=== PATIENT | female | born 1985 | race Caucasian/White ===

== ENCOUNTER → 2021-06-08 | Outpatient (CLI) | payer OTHER ==
--- NOTE | 2021-06-08 09:57 | US ---
EXAMINATION TYPE: US pelvis complete transvag DATE OF EXAM: 06/08/2021 COMPARISON: NONE CLINICAL HISTORY: N92.6 Irregular menstruation unspecified. Irregular cycles x couple months, 3, para 2, miscarriage, history of 2 c-sections TECHNIQUE: . Transabdominal sonographic images of the pelvis were acquired. Transvaginal sonographi c images were medically necessary to better assess the following anatomy: endometrium Date of LMP: 1 to 2 weeks ago EXAM MEASUREMENTS: Uterus: 8.9 x 3.5 x 4.2 cm Endometrial Stripe: 0.4 cm Right Ovary: 3.3 x 2.2 x 2.5 cm Left Ovary: 2.6 x 1.8 x 2.2 cm 1. Uterus: anteverted 2. Endometrium: appears wnl 3. Right Ovary: wnl 4. Left Ovary: wnl. Multiple peripheral follicles are noted. 5. Bilateral Adnexa: wnl 6. Posterior cul-de-sac: wnl IMPRESSION: 1. Note is made of multiple peripheral follicles on the left ovary. Consider polycystic ovarian disea se. 2. Pelvic ultrasound is otherwise unremarkable.
== END | disposition home or self-care (01) ==
LOC: RADUSWWP 07:35
PROVIDERS: ATTEND Family Medicine
DX: N92.6 Irregular menstruation, unspecified (principal)
CPT/HCPCS: 76830; 76856

== ENCOUNTER 2021-12-24 17:03 | Emergency (ER) | payer OTHER ==
[2021-12-24 17:52] VITALS: BP 126/82; PULSE 79; RESP 16; TEMP 97.6
[2021-12-24 18:23] LABS: Appearance,Urine Cloudy (Clear); Color,Urine Yellow; PH, Urine 7.5 (5.0-8.0); Protein,Urine Negative (Negative); Specific Gravity,Urine 1.013 (1.001-1.035)
[2021-12-24 18:24] LABS: Bacteria,Urine Rare /hpf; Bilirubin,Urine Negative (Negative); Blood,Urine Negative (Negative); Glucose,Urine (UA) Negative (Negative); Ketones,Urine Negative (Negative); Leukocyte Esterase,Urine Negative (Negative); Nitrite,Urine Negative (Negative); Squamous Epithelial Cell,Urine 7 /hpf (0-4); Urobilinogen,Urine <2.0 mg/dL (<2.0); WBC,Urine <1 /hpf (0-5)
[2021-12-24 23:28] LABS: Basophils % (A) 0 %; Eosinophils # (A) 0.4 k/uL (0-0.7); Eosinophils % (A) 4 %; HCT 42.5 % (34.0-46.0); HGB 14.2 gm/dL (11.4-16.0); Lymphocytes % (A) 37 %; MCH 33.3 pg (25.0-35.0); MCHC 33.4 g/dL (31.0-37.0); MCV 99.7 fL (80.0-100.0); Mean Platelet Volume 7.4; Monocytes # (A) 0.4 k/uL (0-1.0); Monocytes % (A) 5 %; Neutrophils # (A) 4.1 k/uL (1.3-7.7); Neutrophils % (A) 51 %; Platelet Count 376 k/uL (150-450); RBC 4.26 m/uL (3.80-5.40); RDW 12.7 % (11.5-15.5); WBC 8.1 k/uL (3.8-10.6)
[2021-12-24 23:38] LABS: ALT 20 U/L (4-34); AST 36 U/L (14-36); African American GFR (CKD) >90 (>60 ml/min/1.73 sqM); Albumin 4.4 g/dL (3.5-5.0); Alkaline Phosphatase 117 U/L (38-126); Anion Gap 8 mmol/L; Blood Urea Nitrogen 13 mg/dL (7-17); Calcium 9.1 mg/dL (8.4-10.2); Carbon Dioxide 26 mmol/L (22-30); Chloride 105 mmol/L (98-107); Glucose 86 mg/dL (74-99); Lipase 115 U/L (23-300); Non-African American GFR(CKD) >90 (>60 ml/min/1.73 sqM); Potassium 3.8 mmol/L (3.5-5.1); Sodium 139 mmol/L (137-145); Total Bilirubin 0.5 mg/dL (0.2-1.3); Total Protein 7.5 g/dL (6.3-8.2)
--- NOTE | 2021-12-24 23:55 | US ---
EXAMINATION TYPE: US abdomen limited DATE OF EXAM: 12/24/2021 COMPARISON: NONE CLINICAL HISTORY: ruq. Pain EXAM MEASUREMENTS: Liver Length: 13.9 cm Gallbladder Wall: 0.2 cm CBD: 0.3 cm Right Kidney: 8.9 x 3.8 x 4.7 cm Pancreas: obscured by overlying midline bowel gas Liver: wnl Gallbladder: echogenic foci along posterior wall Evidence for sonographic Rubin's sign: no CBD: wnl Right Kidney: wnl IMPRESSION: There are some small gallstones. No dilated ducts. Gallbladder not dilated.
[2021-12-25] MEDS ORDERED: ONDANSETRON 4 MG ODT STARTER PACK 2 TAB BTL PO STA (00:16)
[2021-12-25] MEDS ORDERED: HYDROcodone/APAP 7.5-325MG 1 EACH TAB PO ONE (00:16)
--- NOTE | 2021-12-25 00:25 | ED ---
Abdominal Pain HPI - General Chief Complaint: Abdominal Pain Stated Complaint: upper abd & back pain Source: patient Mode of arrival: ambulatory Limitations: no limitations - History of Present Illness Initial Comments: DD 6-year-old female presents emergency department for epigastric pain that radiates around to her back. States it started earlier this morning. Described as a cramping sensation related to food intake. Denies fevers. Admits nausea without vomiting. No changes in her bowel or bladder habits. Admits to previous 2. Last menstrual cycle was 3 weeks ago. No abnormal vaginal bleeding or discharge. Admits to one previous attack like this back in August. She did have an EGD which was reported as normal. No other alleviating, precipitating or modifying factors - Related Data Home Medications Medication Instructions Recorded Confirmed Acetaminophen Tab [Tylenol] 1,000 mg PO Q6HR PRN 07/18/19 07/18/19 Naproxen Sodium [Aleve] 440 mg PO BID PRN 07/18/19 07/18/19 Vienva Control 1 tab PO DAILY 07/18/19 07/18/19 Previous Rx's Medication Instructions Recorded Butalb/APAP/Caff 50-325-40Mg 1 each PO Q4HR PRN #10 tab 07/19/19 [Fioricet 50-325-40] HYDROcodone/APAP 7.5-325MG [[place] 1 tab PO Q4HR PRN #18 tab 12/25/21 7.5-325] Ondansetron Odt [Zofran Odt] 4 mg PO Q8HR PRN #10 tab 12/25/21 Allergies Allergy/AdvReac Type Severity Reaction Status Date / Time amoxicillin [Amoxicillin] Allergy Rash/Hives Verified 12/24/21 17:52 loratadine [From Claritin] Allergy Rash/Hives Verified 12/24/21 17:52 Penicillins Allergy Rash/Hives Verified 12/24/21 17:52 Review of Systems ROS Statement: Those systems with pertinent positive or pertinent negative responses have been documented in the HPI. ROS Other: All systems not noted in ROS Statement are negative. Past Medical History Past Medical History: No Reported History Additional Past Medical History / Comment(s): migraines History of Any Multi-Drug Resistant Organisms: None Reported Past Surgical History: Section, Orthopedic Surgery Additional Past Surgical History / Comment(s): RIGHT ARM - TRAUMATIC Past Anesthesia/Blood Transfusion Reactions: No Reported Reaction Past Psychological History: Anxiety, Depression Smoking Status: Never smoker Past Alcohol Use History: Occasional Past Drug Use History: None Reported - Past Family History Mother Family Medical History: Thyroid Disorder Additional Family Medical History / Comment(s): lyme disease Father Family Medical History: Hyperlipidemia, Hypertension Brother(s) Family Medical History: Pneumonia Additional Family Medical History / Comment(s): leukemia Sister(s) Family Medical History: No Reported History Son(s) Family Medical History: No Reported History Daughter(s) Family Medical History: No Reported History General Exam Limitations: no limitations Course Vital Signs 12/24/21 17:50 Temperature 97.6 F Pulse Rate 79 Respiratory 16 Rate Blood Pressure 126/82 O2 Sat by Pulse 100 Oximetry Medical Decision Making - Medical Decision Making Upon arrival patient is placed into room 6. Thorough history and physical exam was performed. IV access established. No pain or nausea at this time. Laboratory studies are conducted. Ultrasound was performed which does demonstrate gallstones. Results discussed patient. She is to call on Sunday to make an appointment with the surgeon. Return for any new or worsening symptoms. She'll be provided with pain and nausea medications at home. Patient agreed to plan and was discharged in stable condition - Lab Data Result diagrams: 12/24/21 23:07 12/24/21 23:07 Lab Results 12/24/21 12/24/21 12/24/21 Range/Units 17:56 17:56 23:07 WBC 8.1 (3.8-10.6) k/uL RBC 4.26 (3.80-5.40) m/uL Hgb 14.2 (11.4-16.0) gm/dL Hct 42.5 (34.0-46.0) % MCV 99.7 (80.0-100.0) fL MCH 33.3 (25.0-35.0) pg MCHC 33.4 (31.0-37.0) g/dL RDW 12.7 (11.5-15.5) % Plt Count 376 (150-450) k/uL MPV 7.4 Neutrophils % 51 % Lymphocytes % 37 % Monocytes % 5 % Eosinophils % 4 % Basophils % 0 % Neutrophils # 4.1 (1.3-7.7) k/uL Lymphocytes # 3.0 (1.0-4.8) k/uL Monocytes # 0.4 (0-1.0) k/uL Eosinophils # 0.4 (0-0.7) k/uL Basophils # 0.0 (0-0.2) k/uL Sodium (137-145) mmol/L Potassium (3.5-5.1) mmol/L Chloride (98-107) mmol/L Carbon Dioxide (22-30) mmol/L Anion Gap mmol/L BUN (7-17) mg/dL Creatinine (0.52-1.04) mg/dL Est GFR (CKD-EPI)AfAm (>60 ml/min/1.73 sqM) Est GFR (CKD-EPI)NonAf (>60 ml/min/1.73 sqM) Glucose (74-99) mg/dL Calcium (8.4-10.2) mg/dL Total Bilirubin (0.2-1.3) mg/dL AST (14-36) U/L ALT (4-34) U/L Alkaline Phosphatase (38-126) U/L Troponin I (0.000-0.034) ng/mL Total Protein (6.3-8.2) g/dL Albumin (3.5-5.0) g/dL Lipase (23-300) U/L Urine Color Yellow Urine Appearance Cloudy H (Clear) Urine pH 7.5 (5.0-8.0) Ur Specific [place] 1.013 (1.001-1.035) Urine Protein Negative (Negative) Urine Glucose (UA) Negative (Negative) Urine Ketones Negative (Negative) Urine Blood Negative (Negative) Urine Nitrite Negative (Negative) Urine Bilirubin Negative (Negative) Urine Urobilinogen <2.0 (<2.0) mg/dL Ur Leukocyte Esterase Negative (Negative) Urine WBC <1 (0-5) /hpf Ur Squamous Epith Cells 7 H (0-4) /hpf Urine Bacteria Rare H (None) /hpf Urine HCG, Qual Not Detected (Not Detectd) 12/24/21 12/24/21 Range/Units 23:07 23:07 WBC (3.8-10.6) k/uL RBC (3.80-5.40) m/uL Hgb (11.4-16.0) gm/dL Hct (34.0-46.0) % MCV (80.0-100.0) fL MCH (25.0-35.0) pg MCHC (31.0-37.0) g/dL RDW (11.5-15.5) % Plt Count (150-450) k/uL MPV Neutrophils % % Lymphocytes % % Monocytes % % Eosinophils % % Basophils % % Neutrophils # (1.3-7.7) k/uL Lymphocytes # (1.0-4.8) k/uL Monocytes # (0-1.0) k/uL Eosinophils # (0-0.7) k/uL Basophils # (0-0.2) k/uL Sodium 139 (137-145) mmol/L Potassium 3.8 (3.5-5.1) mmol/L Chloride 105 (98-107) mmol/L Carbon Dioxide 26 (22-30) mmol/L Anion Gap 8 mmol/L BUN 13 (7-17) mg/dL Creatinine 0.71 (0.52-1.04) mg/dL Est GFR (CKD-EPI)AfAm >90 (>60 ml/min/1.73 sqM) Est GFR (CKD-EPI)NonAf >90 (>60 ml/min/1.73 sqM) Glucose 86 (74-99) mg/dL Calcium 9.1 (8.4-10.2) mg/dL Total Bilirubin 0.5 (0.2-1.3) mg/dL AST 36 (14-36) U/L ALT 20 (4-34) U/L Alkaline Phosphatase 117 (38-126) U/L Troponin I <0.012 (0.000-0.034) ng/mL Total Protein 7.5 (6.3-8.2) g/dL Albumin 4.4 (3.5-5.0) g/dL Lipase 115 (23-300) U/L Urine Color Urine Appearance (Clear) Urine pH (5.0-8.0) Ur Specific [place] (1.001-1.035) Urine Protein (Negative) Urine Glucose (UA) (Negative) Urine Ketones (Negative) Urine Blood (Negative) Urine Nitrite (Negative) Urine Bilirubin (Negative) Urine Urobilinogen (<2.0) mg/dL Ur Leukocyte Esterase (Negative) Urine WBC (0-5) /hpf Ur Squamous Epith Cells (0-4) /hpf Urine Bacteria (None) /hpf Urine HCG, Qual (Not Detectd) Disposition Clinical Impression: Epigastric pain, Gallstones Disposition: HOME SELF-CARE Condition: Stable Instructions (If sedation given, give patient instructions): Gallstones (ED), Low Fat Diet (ED) Additional Instructions: Please call the surgeon on Sunday for an appointment. Follow a strict diet. Take the nausea and pain medications as directed. Return for any new or worsening symptoms. Prescriptions: HYDROcodone/APAP 7.5-325MG [[place] 7.5-325] 1 tab PO Q4HR PRN #18 tab PRN Reason: Pain Ondansetron Odt [Zofran Odt] 4 mg PO Q8HR PRN #10 tab PRN Reason: Nausea Is patient prescribed a controlled substance at d/c from ED?: Yes When asked, does pt state using other controlled substances?: No If prescribed controlled substance>3 days was MAPS reviewed?: Prescribed <3 Days If opioid is for acute pain is fill amount 7 days or less?: Yes Referrals: Vilma Jackson DO [Primary Care Provider] - 1-2 days Alisha Salinas DO [Doctor of Osteopathic Medicine] - 1-2 days Sherie Washington MD [STAFF PHYSICIAN] - 1-2 days Time of Disposition: 00:25
== END 2021-12-25 01:24 | disposition home or self-care (01) ==
LOC: EC 17:03
DX: K80.80 Other cholelithiasis without obstruction (principal); F32.A Depression, unspecified; F41.9 Anxiety disorder, unspecified; Z79.899 Other long term (current) drug therapy
CPT/HCPCS: 36415; 80053; 83690; 84484; 85025; 81001; 81025; 76705; 99284; S0119

== ENCOUNTER 2022-01-01 06:29 | Observation (INO) | payer OTHER ==
[2022-01-01] MEDS ORDERED: SODIUM CHLORIDE 0.9% 500 ML 500 ML IV STA (06:50)
[2022-01-01] MEDS ORDERED: SODIUM CHLORIDE 0.9% 1,000 ML IV STA (06:50)
[2022-01-01] MEDS ORDERED: HYDROmorphone 0.5 MG/0.5 ML SYRINGE IVP STA (07:11)
[2022-01-01] MEDS ORDERED: KETOROLAC 15 MG/ML 1 ML VIAL IVP STA (07:11)
[2022-01-01] MEDS: ONDANSETRON 4 MG/2 ML VIAL IVP STA (07:30)
--- NOTE | 2022-01-01 07:31 | ED ---
Abdominal Pain HPI - General Chief Complaint: Abdominal Pain Stated Complaint: Abd Pain Time Seen by Provider: 01/01/22 06:46 Source: patient, RN notes reviewed Mode of arrival: ambulatory Limitations: no limitations - History of Present Illness Initial Comments: This a 36-year-old female presents emergency Department chief complaint of right upper quadrant abdominal pain. Patient states that started overnight. Patient seen here but a week ago for similar complaints and states that she found that she had gallstones. Patient states she's having increasing pain was not associated with eating overnight that she knows. Patient states that she is sc heduled see Dr. Regalado. Patient states that he is not alleviated she does feel nauseated without significant vomiting she does complain of mild constipation that she's been on pain meds. Patient has been following low-fat diet. - Related Data Home Medications Medication Instructions Recorded Confirmed Acetaminophen Tab [Tylenol] 1,000 mg PO Q6HR PRN 07/18/19 07/18/19 Naproxen Sodium [Aleve] 440 mg PO BID PRN 07/18/19 07/18/19 Vienva Control 1 tab PO DAILY 07/18/19 07/18/19 Previous Rx's Medication Instructions Recorded Butalb/APAP/Caff 50-325-40Mg 1 each PO Q4HR PRN #10 tab 07/19/19 [Fioricet 50-325-40] HYDROcodone/APAP 7.5-325MG [[place] 1 tab PO Q4HR PRN #18 tab 12/25/21 7.5-325] Ondansetron Odt [Zofran Odt] 4 mg PO Q8HR PRN #10 tab 12/25/21 Allergies Allergy/AdvReac Type Severity Reaction Status Date / Time amoxicillin [Amoxicillin] Allergy Rash/Hives Verified 01/01/22 06:39 loratadine [From Claritin] Allergy Rash/Hives Verified 01/01/22 06:39 Penicillins Allergy Rash/Hives Verified 01/01/22 06:39 Review of Systems ROS Statement: Those systems with pertinent positive or pertinent negative responses have been documented in the HPI. ROS Other: All systems not noted in ROS Statement are negative. Past Medical History Past Medical History: No Reported History Additional Past Medical History / Comment(s): migraines History of Any Multi-Drug Resistant Organisms: None Reported Past Surgical History: Section, Orthopedic Surgery Additional Past Surgical History / Comment(s): RIGHT ARM - TRAUMATIC Past Anesthesia/Blood Transfusion Reactions: No Reported Reaction Past Psychological History: Anxiety, Depression Smoking Status: Never smoker Past Alcohol Use History: Occasional Past Drug Use History: None Reported - Past Family History Mother Family Medical History: Thyroid Disorder Additional Family Medical History / Comment(s): lyme disease Father Family Medical History: Hyperlipidemia, Hypertension Brother(s) Family Medical History: Pneumonia Additional Family Medical History / Comment(s): leukemia Sister(s) Family Medical History: No Reported History Son(s) Family Medical History: No Reported History Daughter(s) Family Medical History: No Reported History General Exam Limitations: no limitations General appearance: alert, in no apparent distress Head exam: Present: atraumatic, normocephalic, normal inspection Eye exam: Present: normal appearance, PERRL, EOMI. Absent: scleral icterus, conjunctival injection, periorbital swelling ENT exam: Present: normal exam, mucous membranes moist Neck exam: Present: normal inspection. Absent: tenderness, meningismus, lymphadenopathy Respiratory exam: Present: normal lung sounds bilaterally. Absent: respiratory distress, wheezes, rales, rhonchi, stridor Cardiovascular Exam: Present: regular rate, normal rhythm, normal heart sounds. Absent: systolic murmur, diastolic murmur, rubs, gallop, clicks GI/Abdominal exam: Present: soft, tenderness (Moderate right quadrant), normal bowel sounds. Absent: distended, guarding, rebound, rigid Back exam: Absent: CVA tenderness (R), CVA tenderness (L) Skin exam: Present: warm, dry, intact, normal color. Absent: rash Course Vital Signs 01/01/22 06:40 Temperature 98.3 F Pulse Rate 92 Respiratory 20 Rate Blood Pressure 135/81 O2 Sat by Pulse 100 Oximetry Medical Decision Making - Medical Decision Making 36-year-old present right upper quadrant abdominal pain. Patient had recent ultrasound showed gallstones she's having increasing abdominal pain and alleviated, mildly elevated transaminitis. Patient's case discussed with Dr. Velez who accepts admission - Lab Data Result diagrams: 01/01/22 07:31 01/01/22 07:31 Lab Results 06/26/22 06/26/22 06/26/22 Range/Units 07:31 07:31 07:31 WBC 10.3 (3.8-10.6) k/uL RBC 4.15 (3.80-5.40) m/uL Hgb 13.8 (11.4-16.0) gm/dL Hct 41.0 (34.0-46.0) % MCV 98.9 (80.0-100.0) fL MCH 33.2 (25.0-35.0) pg MCHC 33.6 (31.0-37.0) g/dL RDW 12.2 (11.5-15.5) % Plt Count 334 (150-450) k/uL MPV 7.6 Neutrophils % 73 % Lymphocytes % 16 % Monocytes % 4 % Eosinophils % 5 % Basophils % 1 % Neutrophils # 7.5 (1.3-7.7) k/uL Lymphocytes # 1.6 (1.0-4.8) k/uL Monocytes # 0.4 (0-1.0) k/uL Eosinophils # 0.5 (0-0.7) k/uL Basophils # 0.1 (0-0.2) k/uL Sodium 140 (137-145) mmol/L Potassium 4.9 (3.5-5.1) mmol/L Chloride 106 (98-107) mmol/L Carbon Dioxide 25 (22-30) mmol/L Anion Gap 9 mmol/L BUN 15 (7-17) mg/dL Creatinine 0.66 (0.52-1.04) mg/dL Est GFR (CKD-EPI)AfAm >90 (>60 ml/min/1.73 sqM) Est GFR (CKD-EPI)NonAf >90 (>60 ml/min/1.73 sqM) Glucose 108 H (74-99) mg/dL Plasma Lactic Acid James (0.7-2.0) mmol/L Calcium 9.2 (8.4-10.2) mg/dL Total Bilirubin 1.0 (0.2-1.3) mg/dL AST 87 H (14-36) U/L ALT 32 (4-34) U/L Alkaline Phosphatase 146 H (38-126) U/L Total Protein 7.6 (6.3-8.2) g/dL Albumin 4.5 (3.5-5.0) g/dL Amylase 58 (30-110) U/L Lipase 160 (23-300) U/L Urine Color Yellow Urine Appearance Turbid H (Clear) Urine pH 6.0 (5.0-8.0) Ur Specific [place] 1.022 (1.001-1.035) Urine Protein Trace H (Negative) Urine Glucose (UA) Negative (Negative) Urine Ketones Negative (Negative) Urine Blood Negative (Negative) Urine Nitrite Negative (Negative) Urine Bilirubin Negative (Negative) Urine Urobilinogen 2.0 (<2.0) mg/dL Ur Leukocyte Esterase Trace H (Negative) Urine RBC 2 (0-5) /hpf Urine WBC 7 H (0-5) /hpf Ur Squamous Epith Cells 59 H (0-4) /hpf Amorphous Sediment Occasional H (None) /hpf Urine Bacteria Moderate H (None) /hpf Urine Mucus Occasional H (None) /hpf 01/01/22 Range/Units 07:31 WBC (3.8-10.6) k/uL RBC (3.80-5.40) m/uL Hgb (11.4-16.0) gm/dL Hct (34.0-46.0) % MCV (80.0-100.0) fL MCH (25.0-35.0) pg MCHC (31.0-37.0) g/dL RDW (11.5-15.5) % Plt Count (150-450) k/uL MPV Neutrophils % % Lymphocytes % % Monocytes % % Eosinophils % % Basophils % % Neutrophils # (1.3-7.7) k/uL Lymphocytes # (1.0-4.8) k/uL Monocytes # (0-1.0) k/uL Eosinophils # (0-0.7) k/uL Basophils # (0-0.2) k/uL Sodium (137-145) mmol/L Potassium (3.5-5.1) mmol/L Chloride (98-107) mmol/L Carbon Dioxide (22-30) mmol/L Anion Gap mmol/L BUN (7-17) mg/dL Creatinine (0.52-1.04) mg/dL Est GFR (CKD-EPI)AfAm (>60 ml/min/1.73 sqM) Est GFR (CKD-EPI)NonAf (>60 ml/min/1.73 sqM) Glucose (74-99) mg/dL Plasma Lactic Acid James 1.4 (0.7-2.0) mmol/L Calcium (8.4-10.2) mg/dL Total Bilirubin (0.2-1.3) mg/dL AST (14-36) U/L ALT (4-34) U/L Alkaline Phosphatase (38-126) U/L Total Protein (6.3-8.2) g/dL Albumin (3.5-5.0) g/dL Amylase (30-110) U/L Lipase (23-300) U/L Urine Color Urine Appearance (Clear) Urine pH (5.0-8.0) Ur Specific [place] (1.001-1.035) Urine Protein (Negative) Urine Glucose (UA) (Negative) Urine Ketones (Negative) Urine Blood (Negative) Urine Nitrite (Negative) Urine Bilirubin (Negative) Urine Urobilinogen (<2.0) mg/dL Ur Leukocyte Esterase (Negative) Urine RBC (0-5) /hpf Urine WBC (0-5) /hpf Ur Squamous Epith Cells (0-4) /hpf Amorphous Sediment (None) /hpf Urine Bacteria (None) /hpf Urine Mucus (None) /hpf Disposition Clinical Impression: Cholelithiasis with cholecystitis Disposition: ADMITTED IP TO THIS HOSP Condition: Fair Referrals: Vilma Jackson DO [Primary Care Provider] - 1-2 days Time of Disposition: 08:15
[2022-01-01 07:47] LABS: Basophils # (A) 0.1 k/uL (0-0.2); Basophils % (A) 1 %; Eosinophils # (A) 0.5 k/uL (0-0.7); Eosinophils % (A) 5 %; HGB 13.8 gm/dL (11.4-16.0); Lymphocytes # (A) 1.6 k/uL (1.0-4.8); Lymphocytes % (A) 16 %; MCH 33.2 pg (25.0-35.0); MCHC 33.6 g/dL (31.0-37.0); MCV 98.9 fL (80.0-100.0); Mean Platelet Volume 7.6; Monocytes # (A) 0.4 k/uL (0-1.0); Monocytes % (A) 4 %; Neutrophils # (A) 7.5 k/uL (1.3-7.7); Neutrophils % (A) 73 %; Platelet Count 334 k/uL (150-450); RBC 4.15 m/uL (3.80-5.40); RDW 12.2 % (11.5-15.5); WBC 10.3 k/uL (3.8-10.6)
[2022-01-01 07:56] LABS: ALT 32 U/L (4-34); AST 87 U/L (14-36); African American GFR (CKD) >90 (>60 ml/min/1.73 sqM); Albumin 4.5 g/dL (3.5-5.0); Alkaline Phosphatase 146 U/L (38-126); Amylase 58 U/L (30-110); Anion Gap 9 mmol/L; Blood Urea Nitrogen 15 mg/dL (7-17); Calcium 9.2 mg/dL (8.4-10.2); Carbon Dioxide 25 mmol/L (22-30); Chloride 106 mmol/L (98-107); Glucose 108 mg/dL (74-99); Lipase 160 U/L (23-300); Non-African American GFR(CKD) >90 (>60 ml/min/1.73 sqM); Potassium 4.9 mmol/L (3.5-5.1); Sodium 140 mmol/L (137-145); Total Protein 7.6 g/dL (6.3-8.2)
[2022-01-01 07:59] LABS: Amorphous Sediment,Urine Occasional /hpf; Appearance,Urine Turbid (Clear); Bacteria,Urine Moderate /hpf; Bilirubin,Urine Negative (Negative); Blood,Urine Negative (Negative); Color,Urine Yellow; Glucose,Urine (UA) Negative (Negative); Ketones,Urine Negative (Negative); Leukocyte Esterase,Urine Trace (Negative); Mucus,Urine Occasional /hpf; Nitrite,Urine Negative (Negative); Protein,Urine Trace (Negative); RBC,Urine 2 /hpf (0-5); Specific Gravity,Urine 1.022 (1.001-1.035); Squamous Epithelial Cell,Urine 59 /hpf (0-4); WBC,Urine 7 /hpf (0-5)
[2022-01-01] MEDS ORDERED: NALOXONE 0.4 MG/ML 1 ML VIAL IV PRN ×2 (08:12→08:15)
[2022-01-01] MEDS ORDERED: metroNIDAZOLE-NS PMX 500 MG in SALINE 1 100ML.BAG IVPB STA (08:13)
[2022-01-01] MEDS ORDERED: ONDANSETRON 4 MG/2 ML VIAL IVP PRN (08:15)
[2022-01-01] MEDS: SODIUM CHLORIDE 0.9% 1,000 ML IV SCH ×2 (08:57→22:00)
--- NOTE | 2022-01-01 09:11 | P.GSHP ---
History of Present Illness H&P Date: 01/01/22 Chief Complaint: Right upper quadrant pain Is a 28-year-old female who's had complaints of right upper quadrant pain intermittently. Patient was recently seen in the emergency room. She found have gallstones. Patient states the pain was sudden last night. She describes classic biliary colic. Past Medical History Past Medical History: No Reported History Additional Past Medical History / Comment(s): migraines History of Any Multi-Drug Resistant Organisms: None Reported Past Surgical History: Section, Orthopedic Surgery Additional Past Surgical History / Comment(s): RIGHT ARM - TRAUMATIC Past Anesthesia/Blood Transfusion Reactions: No Reported Reaction Past Psychological History: Anxiety, Depression Smoking Status: Never smoker Past Alcohol Use History: Occasional Past Drug Use History: None Reported - Past Family History Mother Family Medical History: Thyroid Disorder Additional Family Medical History / Comment(s): lyme disease Father Family Medical History: Hyperlipidemia, Hypertension Brother(s) Family Medical History: Pneumonia Additional Family Medical History / Comment(s): leukemia Sister(s) Family Medical History: No Reported History Son(s) Family Medical History: No Reported History Daughter(s) Family Medical History: No Reported History Medications and Allergies Home Medications Medication Instructions Recorded Confirmed Type Acetaminophen Tab [Tylenol] 1,000 mg PO Q6HR PRN 07/18/19 07/18/19 History Naproxen Sodium [Aleve] 440 mg PO BID PRN 07/18/19 07/18/19 History Vienva Control 1 tab PO DAILY 07/18/19 07/18/19 History Butalb/APAP/Caff 50-325-40Mg 1 each PO Q4HR PRN #10 tab 07/19/19 Rx [Fioricet 50-325-40] HYDROcodone/APAP 7.5-325MG [[place] 1 tab PO Q4HR PRN #18 tab 12/25/21 Rx 7.5-325] Ondansetron Odt [Zofran Odt] 4 mg PO Q8HR PRN #10 tab 12/25/21 Rx Allergies Allergy/AdvReac Type Severity Reaction Status Date / Time amoxicillin [Amoxicillin] Allergy Rash/Hives Verified 01/01/22 06:39 loratadine [From Claritin] Allergy Rash/Hives Verified 01/01/22 06:39 Penicillins Allergy Rash/Hives Verified 01/01/22 06:39 Surgical - Exam Vital Signs Temp Pulse Resp BP Pulse Ox 98.3 F 92 20 135/81 100 01/01/22 06:40 01/01/22 06:40 01/01/22 06:40 01/01/22 06:40 01/01/22 06:40 - General well developed, well nourished, no distress - Eyes PERRL - ENT normal pinna - Neck no masses - Respiratory normal expansion - Cardiovascular Rhythm: regular - Abdomen Abdomen: soft, non tender Results - Labs 01/01/22 07:31 01/01/22 07:31 Abnormal Lab Results - Last 24 Hours (Table) 01/01/22 01/01/22 Range/Units 07:31 07:31 Glucose 108 H (74-99) mg/dL AST 87 H (14-36) U/L Alkaline Phosphatase 146 H (38-126) U/L Urine Appearance Turbid H (Clear) Urine Protein Trace H (Negative) Ur Leukocyte Esterase Trace H (Negative) Urine WBC 7 H (0-5) /hpf Ur Squamous Epith Cells 59 H (0-4) /hpf Amorphous Sediment Occasional H (None) /hpf Urine Bacteria Moderate H (None) /hpf Urine Mucus Occasional H (None) /hpf Diabetes panel 01/01/22 Range/Units 07:31 Sodium 140 (137-145) mmol/L Potassium 4.9 (3.5-5.1) mmol/L Chloride 106 (98-107) mmol/L Carbon Dioxide 25 (22-30) mmol/L BUN 15 (7-17) mg/dL Creatinine 0.66 (0.52-1.04) mg/dL Glucose 108 H (74-99) mg/dL Calcium 9.2 (8.4-10.2) mg/dL AST 87 H (14-36) U/L ALT 32 (4-34) U/L Alkaline Phosphatase 146 H (38-126) U/L Total Protein 7.6 (6.3-8.2) g/dL Albumin 4.5 (3.5-5.0) g/dL Calcium panel 01/01/22 Range/Units 07:31 Calcium 9.2 (8.4-10.2) mg/dL Albumin 4.5 (3.5-5.0) g/dL Pituitary panel 01/01/22 Range/Units 07:31 Sodium 140 (137-145) mmol/L Potassium 4.9 (3.5-5.1) mmol/L Chloride 106 (98-107) mmol/L Carbon Dioxide 25 (22-30) mmol/L BUN 15 (7-17) mg/dL Creatinine 0.66 (0.52-1.04) mg/dL Glucose 108 H (74-99) mg/dL Calcium 9.2 (8.4-10.2) mg/dL Adrenal panel 01/01/22 Range/Units 07:31 Sodium 140 (137-145) mmol/L Potassium 4.9 (3.5-5.1) mmol/L Chloride 106 (98-107) mmol/L Carbon Dioxide 25 (22-30) mmol/L BUN 15 (7-17) mg/dL Creatinine 0.66 (0.52-1.04) mg/dL Glucose 108 H (74-99) mg/dL Calcium 9.2 (8.4-10.2) mg/dL Total Bilirubin 1.0 (0.2-1.3) mg/dL AST 87 H (14-36) U/L ALT 32 (4-34) U/L Alkaline Phosphatase 146 H (38-126) U/L Total Protein 7.6 (6.3-8.2) g/dL Albumin 4.5 (3.5-5.0) g/dL Assessment and Plan Assessment: Right upper quadrant pain Gallstones Patient will undergo laparoscopic cholecystectomy in the a.m.
[2022-01-01] MEDS: HYDROmorphone 0.5 MG/0.5 ML SYRINGE IVP PRN (10:08)
[2022-01-01] MEDS: metroNIDAZOLE-NS PMX 500 MG in SALINE 1 100ML.BAG IVPB SCH ×2 (15:39→23:56)
[2022-01-01] MEDS ORDERED: ALBUTEROL NEBULIZED 2.5 MG/3 ML INHALATION PRN (20:55)
--- NOTE | 2022-01-01 21:35 | CONS ---
CONSULTATION DATE OF SERVICE: 01/01/2022 REASON FOR CONSULT: Advice regarding migraines and other medical issues requested by surgery. HISTORY OF PRESENT ILLNESS: This 36-year-old woman with past medical history of migraines, section was having abdominal pain. Patient came to the hospital previously. Ultrasound of the abdomen showed cholelithiasis. Because of lack of improvement, patient came to [facility]. Dr. Velez has seen the patient and is planning laparoscopic cholecystectomy for cholelithiasis. There is no history of fever, rigors, chills at this time. PAST MEDICAL HISTORY: Includes history of migraines. HOME MEDICATION: Include Zofran. The rest of medication and doses are reviewed. ALLERGIES: AMOXICILLIN. FAMILY HISTORY: History of thyroid disease and Lyme disease. SOCIAL HISTORY: No history of smoking. REVIEW OF SYSTEMS: Fourteen point review of systems is negative except as mentioned earlier. PHYSICAL EXAMINATION: Pulse is 67. Blood pressure 140/70, respirations 16. HEENT: Conjunctivae normal. NECK: No JVD. CARDIOVASCULAR: S1, S2. RESPIRATIONS: Breath sounds diminished in the bases. No rhonchi. No crackles. ABDOMEN: Soft. Mild diffuse tenderness in the right upper quadrant. No guarding. No rigidity. LEGS: No edema. No swelling. NERVOUS SYSTEM: Moves all 4 limbs. No focal deficits. LYMPHATICS: No lymph nodes palpable in the neck, axillae or groin. SKIN: No ulcer, no rash or bleeding. JOINTS: No active deforming arthropathy. LABS: CBC within normal limits and alkaline phosphatase 146. ASSESSMENT: 1. Right upper quadrant abdominal pain possible acute cholelithiasis. 2. History of migraines. 3. History of degenerative joint disease. 4. History of anxiety, depression. RECOMMENDATIONS AND DISCUSSION: This 36-year-old woman who presented with acute cholelithiasis. At this time, the patient is medically stable. Recommend to continue the current medication. DVT prophylaxis. Closely follow with surgery. Resume the home medications. Further recommendations to follow. Thank you Dr. Velez for letting us participate in the care of this patient. MMODL / TONAN: [id number] /
[2022-01-01] MEDS: HEPARIN SODIUM,PORCINE/PF 5,000 UNIT/0.5 ML SYRINGE SQ SCH (22:00)
[2022-01-01] MEDS ORDERED: ACETAMINOPHEN TAB 325 MG TAB PO PRN (22:52)
[2022-01-01] MEDS: METOCLOPRAMIDE 5 MG/ML 2 ML VIAL IVP PRN (23:56)
[2022-01-02] MEDS: HEPARIN SODIUM,PORCINE/PF 5,000 UNIT/0.5 ML SYRINGE SQ SCH ×2 (08:28→20:52)
[2022-01-02] MEDS: metroNIDAZOLE-NS PMX 500 MG in SALINE 1 100ML.BAG IVPB SCH ×2 (08:29→17:19)
[2022-01-02 09:16] LABS: Basophils # (A) 0.02 X 10*3/uL (0.00-0.10); Basophils % (A) 0.3 %; Eosinophils # (A) 0.18 X 10*3/uL (0.04-0.35); Eosinophils % (A) 2.8 %; HCT 36.2 % (37.2-46.3); HGB 11.7 g/dL (12.0-15.0); Immature Grans, Automated 0.3 %; Lymphocytes % (A) 32.9 %; MCH 32.1 pg (27.0-32.0); MCHC 32.3 g/dL (32.0-37.0); MCV 99.2 fL (80.0-97.0); Mean Platelet Volume 10.6 fL (9.5-12.2); Monocytes # (A) 0.42 X 10*3/uL (0.20-1.00); Monocytes % (A) 6.6 %; NRBC Per 100 WBC 0 /100 WBCS (0.0-0.0); Neutrophils # (A) 3.64 X 10*3/uL (1.80-7.70); Neutrophils % (A) 57.1 %; Platelet Count 304 X 10*3/uL (140-440); RBC 3.65 X 10*6/uL (4.10-5.20); RDW 12.7 % (11.5-14.5); WBC 6.38 X 10*3/uL (4.50-10.00)
[2022-01-02 09:33] LABS: African American GFR (CKD) 127.4 (60.0-200.0); Anion Gap 7.3 mmol/L (10.00-18.00); BUN/Creat Ratio 10.86 Ratio (12.00-20.00); Blood Urea Nitrogen 7.6 mg/dL (9.0-27.0); Calcium 8.6 mg/dL (8.7-10.3); Carbon Dioxide 23.7 mmol/L (20.0-27.5); Non-African American GFR(CKD) 109.9 (60.0-200.0); Potassium 4.4 mmol/L (3.5-5.5)
[2022-01-02] MEDS ORDERED: ACETAMINOPHEN IV (For NPO) 1,000 MG in EMPTY BAG 1 BAG IVPB PRN (09:56)
[2022-01-02] MEDS: SODIUM CHLORIDE 0.9% 1,000 ML IV SCH (12:53)
[2022-01-02] MEDS ORDERED: LACTATED RINGERS 1,000 ML IV ONE (14:10)
[2022-01-02] MEDS: ONDANSETRON 4 MG/2 ML VIAL IVP STA (14:17)
[2022-01-02] MEDS ORDERED: DEXAMETHASONE SOD PHOSPHATE 4 MG/ML 1 ML VIAL IVP ONE (14:17)
[2022-01-02] MEDS ORDERED: SCOPOLAMINE 1 MG/72 HR PATCH TRANSDERM ONE (14:18)
[2022-01-02] MEDS ORDERED: MIDAZOLAM 2 MG/2 ML VIAL IVP ONE ×3 (14:20→14:48)
[2022-01-02] MEDS ORDERED: LIDOCAINE 2% INJ 20 MG/ML (2 ML VIAL) ONE (14:54)
[2022-01-02] MEDS ORDERED: MIDAZOLAM 2 MG/2 ML VIAL ONE (14:54)
[2022-01-02] MEDS ORDERED: HYDROmorphone (PF) 1 MG/ML ONE (14:54)
[2022-01-02] MEDS ORDERED: SUCCINYLCHOLINE CHLORIDE 100 MG/5 ML SYR IV ONE (14:54)
[2022-01-02] MEDS ORDERED: KETOROLAC 15 MG/ML 1 ML VIAL ONE (14:54)
[2022-01-02] MEDS ORDERED: fentaNYL (PF) 50 MCG/ML 2 ML AMP ONE (14:54)
[2022-01-02] MEDS ORDERED: GLYCOPYRROLATE 0.2 MG/ML 2 ML VIAL ONE (14:54)
[2022-01-02] MEDS ORDERED: NEOSTIGMINE 1 MG/ML 10 ML VIAL ONE (14:54)
[2022-01-02] MEDS ORDERED: ROCURONIUM 10 MG/ML (5 ML VIAL) IV ONE (14:54)
[2022-01-02] MEDS ORDERED: PROPOFOL 10 MG/ML 20 ML VIAL IV ONE (14:54)
--- NOTE | 2022-01-02 15:02 | PN ---
PROGRESS NOTE DATE OF SERVICE: 01/02/2022 This 36-year-old woman admitted with abdominal pain, cholelithiasis, slated for laparoscopic cholecystectomy today. No chest pain. No palpitation. PHYSICAL EXAMINATION: Pulse is 91, blood pressure 130/77. Respiratory rate 17. HEENT: Conjunctivae normal. Neck: No JVD. Cardiovascular: S1, S2 muffled. Respirations: Breath sounds diminished in the bases. No rhonchi, no crackles. Abdomen: Soft, nontender. Legs are no edema. No swelling. Nervous system: No focal deficits. LABS: Hemoglobin 11.7. Other labs are noted. ASSESSMENT: 1. Acute cholelithiasis and abdominal pain for laparoscopic cholecystectomy. 2. History of migraines. 3. History of degenerative joint disease. 4. History of anxiety, depression. RECOMMENDATIONS AND DISCUSSION: Continue current medications, management and DVT prophylaxis. Closely follow with surgery. Further recommendations to follow. Symptomatic treatment. MMODL / IJN: [id number] /
[2022-01-02] MEDS ORDERED: BUPIVACAIN-EPI 0.25%-1:200,000 30 ML VIAL SQ ONE (15:18)
[2022-01-02] MEDS ORDERED: ONDANSETRON 4 MG TAB PO PRN (15:41)
[2022-01-02] MEDS ORDERED: HYDROmorphone 1 MG/ML 1 ML SYRINGE IVP PRN (15:41)
[2022-01-02] MEDS ORDERED: HYDROcodone/APAP 7.5-325MG 1 EACH TAB PO PRN (15:41)
--- NOTE | 2022-01-02 15:43 | P.OP ---
Date of Procedure: 01/02/22 Preoperative Diagnosis: Cholecystitis Postoperative Diagnosis: Cholecystitis Procedure(s) Performed: Laparoscopic cholecystectomy Anesthesia: REGINA Surgeon: Edgar Velez Estimated Blood Loss (ml): 5 Pathology: other (Gallbladder) Condition: stable Disposition: PACU Description of Procedure: The patient was placed on the operating table. The patient received a general endotracheal tube anesthesia. The patients abdomen was prepped and draped in the usual sterile fashion. Through an infraumbilical stab incision, the fascia of the anterior abdominal wall was grasped with a pair of Kochers and then the Veress needle was placed in the peritoneal cavity. Position of the Veress needle was confirmed with positive drop test. The abdomen was then insufflated. After adequate insufflation, the 10 mm trocar was placed in the peritoneal cavity. Following this the laparoscope was placed in the peritoneal cavity. The patient was placed in the head-up, right side up position and then a 5 mm trocar was placed in the right lateral and right subcostal position under direct visualization. A 8 mm trocar was placed in the epigastric position. The gallbladder was grasped in the fundus and infundibulum. Traction on the gallbladder was placed in the lateral and the cephalad positions. The triangle of Calot was visualized.. The cystic duct was bluntly dissected until the union of the cystic duct and common bile duct was seen. A critical view of safety was achieved. The cystic duct was then divided and sealed with the Harmonic scissors. A PDS Endoloop was then placed throughout the cystic duct stump. The cystic artery divided and sealed with the Harmonic scissors. The gallbladder was then removed from the liver bed using Harmonic scissors. The gallbladder was then extracted through the epigastric port site. Operative field was checked for any bleeding spots and Harmonic scissors was used to coagulate the liver bed. The abdomen was irrigated. The trocars were removed. The skin was closed using interrupted 3-0 Vicryl suture. Dermabond dressing were applied. The patient tolerated the procedure well.
[2022-01-02] MEDS ORDERED: HYDROmorphone 0.5 MG/0.5 ML SYRINGE IVP ONE ×2 (15:53→15:59)
[2022-01-02] MEDS: HYDROcodone/APAP 7.5-325MG 1 EACH TAB PO PRN (22:11)
[2022-01-02 22:25] VITALS: RESP 16
[2022-01-03] MEDS: SODIUM CHLORIDE 0.9% 1,000 ML IV SCH ×2 (00:22→08:06)
[2022-01-03] MEDS: metroNIDAZOLE-NS PMX 500 MG in SALINE 1 100ML.BAG IVPB SCH ×2 (00:23→08:04)
[2022-01-03] MEDS: HYDROmorphone 0.5 MG/0.5 ML SYRINGE IVP PRN (00:40)
[2022-01-03] MEDS: HYDROcodone/APAP 7.5-325MG 1 EACH TAB PO PRN ×2 (04:34→09:40)
[2022-01-03 07:43] VITALS: BP 114/74; PULSE 76; TEMP 97.5
[2022-01-03] MEDS ORDERED: ENOXAPARIN 40 MG/0.4 ML SYRINGE SQ SCH (09:00)
--- NOTE | 2022-01-03 11:48 | P.DS ---
Providers Date of admission: 01/01/22 08:13 Expected date of discharge: 01/03/22 Attending physician: Edgar Velez Consults: 01/01/22 09:08 Consult Physician Routine Consulting Provider: Pantera Toribio Consult Reason/Comments: Medical management Do you want consulting provider notified?: Yes Primary care physician: Vilma Jackson Hospital Course: Discharge diagnosis 1. Cholecystitis status post laparoscopic cholecystectomy Hospital course This is a 28-year-old female presented with right upper quadrant abdominal pain. She was found have evidence of gallstones. Patient is status post laparoscopic cholecystectomy. She tolerated surgery well. Her pain is controlled. She is tolerating diet. She has been up and ambulate in. She is afebrile. She is stable for discharge. Please refer to chart for any further details. Physician Cesspool Cleaner note has been reviewed by physician. Signing provider agrees with the documented findings, assessment, and plan of care. Patient Condition at Discharge: Stable Plan - Discharge Summary New Discharge Prescriptions: Continue Naproxen Sodium [Aleve] 440 mg PO BID PRN PRN Reason: Pain Acetaminophen Tab [Tylenol] 1,000 mg PO Q6HR PRN PRN Reason: Pain HYDROcodone/APAP 7.5-325MG [[place] 7.5-325] 1 tab PO Q4HR PRN #18 tab PRN Reason: Pain Ondansetron Odt [Zofran ODT] 4 mg PO Q8HR PRN #10 tab PRN Reason: Nausea [place] 0.1/20 1 tab PO DAILY Albuterol Sulfate [Proair Hfa] 1 - 2 puff INHALATION RT-Q6H PRN PRN Reason: Shortness Of Breath Omeprazole 20 mg PO DAILY Discharge Medication List Acetaminophen Tab [Tylenol] 1,000 mg PO Q6HR PRN 07/18/19 [History] Naproxen Sodium [Aleve] 440 mg PO BID PRN 07/18/19 [History] HYDROcodone/APAP 7.5-325MG [[place] 7.5-325] 1 tab PO Q4HR PRN #18 tab 12/25/21 [Rx] Ondansetron Odt [Zofran ODT] 4 mg PO Q8HR PRN #10 tab 12/25/21 [Rx] Albuterol Sulfate [Proair Hfa] 1 - 2 puff INHALATION RT-Q6H PRN 01/01/22 [History] [place] 0.1/ 1 tab PO DAILY 01/01/22 [History] Omeprazole 20 mg PO DAILY 01/01/22 [History] Follow up Appointment(s)/Referral(s): Vilma Jackson DO [Primary Care Provider] - 1-2 days Edgar Velez MD [STAFF PHYSICIAN] - 1 Week Patient Instructions/Handouts: *Surgery [facility] - Scopalamine Patch Instructions Activity/Diet/Wound Care/Special Instructions: No driving while taking [place] No lifting over 10 pounds Shower daily. No soaking or tub baths for 2 weeks Very light activity until you are reevaluated at your follow up appointment with your surgeon Discharge Disposition: HOME SELF-CARE
[2022-01-03] MEDS: METOCLOPRAMIDE 5 MG/ML 2 ML VIAL IVP PRN (12:20)
--- NOTE | 2022-01-03 19:20 | PN ---
PROGRESS NOTE DATE OF SERVICE: 01/03/2022 This 36-year-old woman who was admitted with acute cholelithiasis and abdominal pain underwent laparoscopic cholecystectomy. No chest pain. No palpitations. No fever. PHYSICAL EXAMINATION: Pulse is 76, blood pressure 140/70, respiration 16. HEENT: Conjunctivae normal. NECK: No jugular venous distention. CARDIOVASCULAR: S1, S2 muffled. RESPIRATION: Breath sounds diminished at the bases. ABDOMEN: Soft. Status post surgery. LEGS: No edema. No swelling. NERVOUS SYSTEM: No focal deficit. LABS: Reviewed. Hemoglobin 11.7. Other labs are reviewed. ASSESSMENT: 1. Acute cholelithiasis, status post laparoscopic cholecystectomy. 2. History of migraine. 3. History of degenerative joint disease. 4. History of anxiety, depression. RECOMMENDATIONS AND DISCUSSION: I recommend to continue current medications, continue with the monitoring, symptomatic treatment. Pain management. DVT prophylaxis. Incentive spirometry. Rest of the recommendations per Surgery. Follow with primary physician after discharge. MMODL / IJN: [id number] /
== END 2022-01-03 13:17 | disposition home or self-care (01) ==
LOC: EC 06:29 → 6NMEDSUR 08:13
PROVIDERS: ADMIT Surgery; ATTEND Surgery
DX: K80.10 Calculus of gallbladder with chronic cholecystitis without obstruction (principal); G43.909 Migraine, unspecified, not intractable, without status migrainosus; Z98.891 History of uterine scar from previous surgery; Z98.890 Other specified postprocedural states; F41.9 Anxiety disorder, unspecified; F32.A Depression, unspecified; Z83.49 Family history of other endocrine, nutritional and metabolic diseases; Z84.89 Family history of other specified conditions; Z83.1 Family history of other infectious and parasitic diseases; Z83.6 Family history of other diseases of the respiratory system; Z80.6 Family history of leukemia; K21.9 Gastro-esophageal reflux disease without esophagitis; Z79.3 Long term (current) use of hormonal contraceptives; Z88.0 Allergy status to penicillin; Z88.8 Allergy status to other drugs, medicaments and biological substances
CPT/HCPCS: 96374; 96375; 99284; 36415; 88304; 80053; 80048; 82150; 83605; 83690; 85025 ×2; 81001; 84703; 47562; G0378 ×3; J2250; J1100; J2710; J2765 ×2; J2405 ×2; J0696 ×3; J1650; J3010; J1170 ×4; J0131; J1885 ×2; J0330; J2704; J1644 ×2; J2001

== ENCOUNTER 2022-09-26 19:13 | Emergency (ER) | payer OTHER ==
[2022-09-26 19:20] VITALS: BP 141/89; PULSE 81; RESP 16; TEMP 97.9
--- NOTE | 2022-09-26 20:06 | XR ---
EXAMINATION TYPE: XR KUB DATE OF EXAM: 09/26/2022 7:59 PM INDICATION: Patient age:Female; 37 years old; Reason for study: abdominal pain; COMPARISON: None. TECHNIQUE: One radiographic view of the abdomen was obtained. FINDINGS: The bowel gas pattern is nonspecific without dilated loops of small or large bowel. There i s no evidence for organomegaly or pneumoperitoneum. The osseous structures are intact. No abnormal calcifications are present. Fecal material and gas are demonstrated throughout the colon and rectum. Right upper quadrant cholecystectomy clips. IMPRESSION: Nonspecific bowel gas pattern without radiographic evidence for acute process.
[2022-09-26 20:07] LABS: Appearance,Urine Clear (Clear); Bilirubin,Urine Negative (Negative); Blood,Urine Negative (Negative); Color,Urine Yellow; Glucose,Urine (UA) Negative (Negative); Ketones,Urine Negative (Negative); Leukocyte Esterase,Urine Negative (Negative); Nitrite,Urine Negative (Negative); Protein,Urine Negative (Negative); Specific Gravity,Urine 1.016 (1.001-1.035); Urobilinogen,Urine <2.0 mg/dL (<2.0)
--- NOTE | 2022-09-26 20:28 | ED ---
General Adult HPI - General Source: patient Mode of arrival: ambulatory Limitations: no limitations <Nevaeh Menon - Last Filed: 09/26/22 20:24> - General Source: patient, RN notes reviewed Mode of arrival: ambulatory Limitations: no limitations <Travis Bennett - Last Filed: 09/26/22 22:11> - General Chief complaint: Abdominal Pain Stated complaint: Upper Abd Pain Time Seen by Provider: 09/26/22 20:24 - History of Present Illness Initial comments: 37-year-old female with a past medical history of cholecystectomy E presents to the emergency Department chief complaint of epigastric pain 3 days. (Nevaeh Menon) 37-year-old female sent emergency Department chief complaint of upper abdominal pain. Patient states his been wax and wane states that it was really severe but has somewhat subsided now. Patient states that she's been having loose stools. She did have some nausea without vomiting. Patient had prior cholecystectomy. Patient states pain is very similar to this. Patient denies any chest pain or shortness of breath no other complaints. (Travis Bennett) - Related Data Home Medications Medication Instructions Recorded Confirmed Acetaminophen Tab [Tylenol] 1,000 mg PO Q6HR PRN 07/18/19 01/01/22 Naproxen Sodium [Aleve] 440 mg PO BID PRN 07/18/19 01/01/22 Albuterol Sulfate [Proair Hfa] 1 - 2 puff INHALATION RT-Q6H PRN 01/01/22 01/01/22 [place] 0.1/20 1 tab PO DAILY 01/01/22 01/01/22 Omeprazole 20 mg PO DAILY 01/01/22 01/01/22 Previous Rx's Medication Instructions Recorded HYDROcodone/APAP 7.5-325MG [[place] 1 tab PO Q4HR PRN #18 tab 12/25/21 7.5-325] Ondansetron Odt [Zofran ODT] 4 mg PO Q8HR PRN #10 tab 12/25/21 Allergies Allergy/AdvReac Type Severity Reaction Status Date / Time amoxicillin [Amoxicillin] Allergy Rash/Hives Verified 01/01/22 11:01 loratadine [From Claritin] Allergy Rash/Hives Verified 01/01/22 11:01 Penicillins Allergy Rash/Hives Verified 01/01/22 11:01 Review of Systems ROS Other: All systems not noted in ROS Statement are negative. <Nevaeh Menon - Last Filed: 09/26/22 20:24> ROS Other: All systems not noted in ROS Statement are negative. <Travis Bennett - Last Filed: 09/26/22 22:11> ROS Statement: Those systems with pertinent positive or pertinent negative responses have been documented in the HPI. Past Medical History Past Medical History: No Reported History Additional Past Medical History / Comment(s): migraines History of Any Multi-Drug Resistant Organisms: None Reported Past Surgical History: Section, Orthopedic Surgery Additional Past Surgical History / Comment(s): RIGHT ARM - TRAUMATIC Past Anesthesia/Blood Transfusion Reactions: No Reported Reaction Past Psychological History: Anxiety, Depression Smoking Status: Never smoker Past Alcohol Use History: Occasional Past Drug Use History: None Reported - Past Family History Mother Family Medical History: Thyroid Disorder Additional Family Medical History / Comment(s): lyme disease Father Family Medical History: Hyperlipidemia, Hypertension Brother(s) Family Medical History: Pneumonia Additional Family Medical History / Comment(s): leukemia Sister(s) Family Medical History: No Reported History Son(s) Family Medical History: No Reported History Daughter(s) Family Medical History: No Reported History <Nevaeh Menon - Last Filed: 09/26/22 20:24> General Exam Limitations: no limitations <Nevaeh Menon - Last Filed: 09/26/22 20:24> General appearance: alert, in no apparent distress Head exam: Present: atraumatic, normocephalic, normal inspection Respiratory exam: Present: normal lung sounds bilaterally. Absent: respiratory distress, wheezes, rales, rhonchi, stridor Cardiovascular Exam: Present: regular rate, normal rhythm, normal heart sounds. Absent: systolic murmur, diastolic murmur, rubs, gallop, clicks GI/Abdominal exam: Present: soft, tenderness (very minimal), normal bowel sounds. Absent: distended, guarding, rebound, rigid Back exam: Absent: CVA tenderness (R), CVA tenderness (L) <Travis Bennett - Last Filed: 09/26/22 22:11> - General Exam Comments Initial Comments: Visual Physical Exam Vital signs reviewed General: Well-appearing, nontoxic, no acute distress. Head: Normocephalic, atraumatic Eyes: PERRLA, EOMI ENT: Airway patent Chest: Nonlabored breathing Skin: No visual rash, normal skin tone Neuro: Alert and oriented 3 Musculoskeletal: No gross abnormalities (Nevaeh Menon) Course Vital Signs 09/26/22 19:17 Temperature 97.9 F Pulse Rate 81 Respiratory 16 Rate Blood Pressure 141/89 O2 Sat by Pulse 98 Oximetry EKG Findings - EKG Comments: EKG Findings:: EKG performed at :23 sinus rhythm rate of 69 ME once 74 QRS 91 QT/QTC 378/398 - EKG Results: EKG: interpreted by ERMD <Travis Bennett - Last Filed: 09/26/22 22:11> Medical Decision Making - Lab Data Result diagrams: 09/26/22 20:51 09/26/22 20:51 <Travis Bennett - Last Filed: 09/26/22 22:11> - Medical Decision Making Was pt. sent in by a medical professional or institution (Dr. PA, HABILITATIVE INTERVENTIONIST, urgent care, hospital, or snf...) When possible be specific @ -No Did you speak to anyone other than the patient for history (EMS, parent, family, police, friend...)? What history was obtained from this source @ -No Did you review nursing and triage notes (agree or disagree)? Why? @ -I reviewed and agree with nursing and triage notes Were old charts reviewed (outside hosp., previous admission, EMS record, old EKG, old radiological studies, urgent care reports/EKG's, snf records)? Report findings @ -No old charts were reviewed Differential Diagnosis (chest pain, altered mental status, abdominal pain women, abdominal pain men, vaginal bleeding, weakness, fever, dyspnea, syncope, headache, dizziness, GI bleed, back pain, seizure, CVA, palpatations, mental health, musculoskeletal)? @ -Differential Abdominal Pain Women: Appendicitis, Cholecystitis, diverticulosis, ischemic bowel, pancreatitis, hepatitis, UTI, gastroenteritis, AAA, incarcerated hernia, bowel obstruction, constipation, inflammatory bowel, hepatitis, peptic ulcer disease, splenic infarction, perforated viscus, vulvitis, ovarian torsion, PID, kidney stone, placenta abruption, this is not meant to be an all-inclusive list EKG interpreted by me (3pts min.). @ -As above X-rays interpreted by me (1pt min.). @ -X-ray shows no acute process CT interpreted by me (1pt min.). @ -CT abdomen and pelvis shows stool and gas throughout the colon, otherwise no acute process. U/S interpreted by me (1pt. min.). @ -None done What testing was considered but not performed or refused? (CT, X-rays, U/S, labs)? Why? @ -None What meds were considered but not given or refused? Why? @ -None Did you discuss the management of the patient with other professionals (professionals i.e. , PA, HABILITATIVE INTERVENTIONIST, lab, RT, psych nurse, social service worker, stablehand, teacher, staff electronic warfare officer, case loader operator)? Give summary @ -No Was smoking cessation discussed for >3mins.? @ -No Was critical care preformed (if so, how long)? @ -No Were there social determinants of health that impacted care today? How? (Homelessness, low income, unemployed, alcoholism, drug addiction, transportation, low edu. Level, literacy, decrease access to med. care, usp, rehab)? @ -No Was there de-escalation of care discussed even if they declined (Discuss DNR or withdrawal of care, Hospice)? DNR status @ -No What co-morbidities impacted this encounter? (DM, HTN, Smoking, COPD, CAD, Cancer, CVA, ARF, Chemo, Hep., AIDS, mental health diagnosis, sleep apnea, morbid obesity)? @ -None Was patient admitted / discharged? Hospital course, mention meds given and route, prescriptions, significant lab abnormalities, going to OR and other pertinent info. @ -Discharge patient has negative workup including labs, CT. Patient does have moderate gas and stool.: 80 causing some discomfort. Patient will be discharged in stable condition with close follow-up return parameters discussed Undiagnosed new problem with uncertain prognosis? @ -No Drug Therapy requiring intensive monitoring for toxicity (Heparin, Nitro, Insulin, Cardizem)? @ -No Were any procedures done? @ -No Diagnosis/symptom? @ -Abdominal pain, enteritis Acute, or Chronic, or Acute on Chronic? @ -Acute Uncomplicated (without systemic symptoms) or Complicated (systemic symptoms)? @ -Uncomplicated Side effects of treatment? @ -No Exacerbation, Progression, or Severe Exacerbation? @ -No Poses a threat to life or bodily function? How? (Chest pain, [place], [place], pneumonia, PE, COPD, DKA, ARF, appy, cholecystitis, CVA, Diverticulitis, Homicidal, Suicidal, threat to staff... and all critical care pts) @ -No (Travis Bennett) - Lab Data Lab Results 09/26/22 09/26/22 09/26/22 Range/Units 20:51 20:51 20:51 WBC 8.0 (3.8-10.6) k/uL RBC 4.15 (3.80-5.40) m/uL Hgb 14.0 (11.4-16.0) gm/dL Hct 41.4 (34.0-46.0) % MCV 99.8 (80.0-100.0) fL MCH 33.7 (25.0-35.0) pg MCHC 33.7 (31.0-37.0) g/dL RDW 11.9 (11.5-15.5) % Plt Count 323 (150-450) k/uL MPV 7.2 Neutrophils % 62 % Lymphocytes % 28 % Monocytes % 4 % Eosinophils % 4 % Basophils % 0 % Neutrophils # 5.0 (1.3-7.7) k/uL Lymphocytes # 2.2 (1.0-4.8) k/uL Monocytes # 0.4 (0-1.0) k/uL Eosinophils # 0.3 (0-0.7) k/uL Basophils # 0.0 (0-0.2) k/uL Sodium 138 (137-145) mmol/L Potassium 4.1 (3.5-5.1) mmol/L Chloride 103 (98-107) mmol/L Carbon Dioxide 27 (22-30) mmol/L Anion Gap 8 mmol/L BUN 11 (7-17) mg/dL Creatinine 0.63 (0.52-1.04) mg/dL Est GFR (CKD-EPI)AfAm >90 (>60 ml/min/1.73 sqM) Est GFR (CKD-EPI)NonAf >90 (>60 ml/min/1.73 sqM) Glucose 99 (74-99) mg/dL Calcium 9.3 (8.4-10.2) mg/dL Total Bilirubin 0.7 (0.2-1.3) mg/dL AST 36 (14-36) U/L ALT 19 (4-34) U/L Alkaline Phosphatase 122 (38-126) U/L Troponin I <0.012 (0.000-0.034) ng/mL Total Protein 7.8 (6.3-8.2) g/dL Albumin 4.5 (3.5-5.0) g/dL Amylase 44 (30-110) U/L Lipase 73 (23-300) U/L Urine Color Urine Appearance (Clear) Urine pH (5.0-8.0) Ur Specific [place] (1.001-1.035) Urine Protein (Negative) Urine Glucose (UA) (Negative) Urine Ketones (Negative) Urine Blood (Negative) Urine Nitrite (Negative) Urine Bilirubin (Negative) Urine Urobilinogen (<2.0) mg/dL Ur Leukocyte Esterase (Negative) Urine HCG, Qual (Not Detectd) 09/26/22 09/26/22 Range/Units Unknown Unknown WBC (3.8-10.6) k/uL RBC (3.80-5.40) m/uL Hgb (11.4-16.0) gm/dL Hct (34.0-46.0) % MCV (80.0-100.0) fL MCH (25.0-35.0) pg MCHC (31.0-37.0) g/dL RDW (11.5-15.5) % Plt Count (150-450) k/uL MPV Neutrophils % % Lymphocytes % % Monocytes % % Eosinophils % % Basophils % % Neutrophils # (1.3-7.7) k/uL Lymphocytes # (1.0-4.8) k/uL Monocytes # (0-1.0) k/uL Eosinophils # (0-0.7) k/uL Basophils # (0-0.2) k/uL Sodium (137-145) mmol/L Potassium (3.5-5.1) mmol/L Chloride (98-107) mmol/L Carbon Dioxide (22-30) mmol/L Anion Gap mmol/L BUN (7-17) mg/dL Creatinine (0.52-1.04) mg/dL Est GFR (CKD-EPI)AfAm (>60 ml/min/1.73 sqM) Est GFR (CKD-EPI)NonAf (>60 ml/min/1.73 sqM) Glucose (74-99) mg/dL Calcium (8.4-10.2) mg/dL Total Bilirubin (0.2-1.3) mg/dL AST (14-36) U/L ALT (4-34) U/L Alkaline Phosphatase (38-126) U/L Troponin I (0.000-0.034) ng/mL Total Protein (6.3-8.2) g/dL Albumin (3.5-5.0) g/dL Amylase (30-110) U/L Lipase (23-300) U/L Urine Color Yellow Urine Appearance Clear (Clear) Urine pH 6.0 (5.0-8.0) Ur Specific [place] 1.016 (1.001-1.035) Urine Protein Negative (Negative) Urine Glucose (UA) Negative (Negative) Urine Ketones Negative (Negative) Urine Blood Negative (Negative) Urine Nitrite Negative (Negative) Urine Bilirubin Negative (Negative) Urine Urobilinogen <2.0 (<2.0) mg/dL Ur Leukocyte Esterase Negative (Negative) Urine HCG, Qual Not Detected (Not Detectd) Disposition <Nevaeh Menon - Last Filed: 09/26/22 20:24> Is patient prescribed a controlled substance at d/c from ED?: No Time of Disposition: 22:11 <Travis Bennett - Last Filed: 09/26/22 22:11> Clinical Impression: Abdominal pain, Enteritis Disposition: HOME SELF-CARE Condition: Stable Instructions (If sedation given, give patient instructions): Abdominal Pain (ED) Additional Instructions: Please return to the Emergency Department if symptoms worsen or any other concerns. Referrals: Vilma Jackson DO [Primary Care Provider] - 1-2 days
[2022-09-26 21:01] LABS: Basophils % (A) 0 %; Eosinophils # (A) 0.3 k/uL (0-0.7); Eosinophils % (A) 4 %; HCT 41.4 % (34.0-46.0); Lymphocytes # (A) 2.2 k/uL (1.0-4.8); Lymphocytes % (A) 28 %; MCH 33.7 pg (25.0-35.0); MCHC 33.7 g/dL (31.0-37.0); MCV 99.8 fL (80.0-100.0); Mean Platelet Volume 7.2; Monocytes # (A) 0.4 k/uL (0-1.0); Monocytes % (A) 4 %; Neutrophils % (A) 62 %; Platelet Count 323 k/uL (150-450); RBC 4.15 m/uL (3.80-5.40); RDW 11.9 % (11.5-15.5)
[2022-09-26 21:10] LABS: ALT 19 U/L (4-34); AST 36 U/L (14-36); African American GFR (CKD) >90 (>60 ml/min/1.73 sqM); Albumin 4.5 g/dL (3.5-5.0); Alkaline Phosphatase 122 U/L (38-126); Amylase 44 U/L (30-110); Anion Gap 8 mmol/L; Blood Urea Nitrogen 11 mg/dL (7-17); Calcium 9.3 mg/dL (8.4-10.2); Carbon Dioxide 27 mmol/L (22-30); Chloride 103 mmol/L (98-107); Glucose 99 mg/dL (74-99); Lipase 73 U/L (23-300); Non-African American GFR(CKD) >90 (>60 ml/min/1.73 sqM); Potassium 4.1 mmol/L (3.5-5.1); Sodium 138 mmol/L (137-145); Total Bilirubin 0.7 mg/dL (0.2-1.3); Total Protein 7.8 g/dL (6.3-8.2)
--- NOTE | 2022-09-26 21:58 | CT ---
EXAMINATION TYPE: CT abdomen pelvis w con CT DLP: 1442.1 mGycm, Automated exposure control for dose reduction was used. DATE OF EXAM: 09/26/2022 9:47 PM COMPARISON: None CLINICAL INDICATION:Female, 37 years old with history of mid abd pain; mid abdominal pain. TECHNIQUE: Axial CT of the abdomen and pelvis. Sagittal and coronal reformats were created on a [employer] workstation. Contrast used:100 cc mL of Isovue 300 with IV Contrast, Oral contrast used: without Oral Contrast FINDINGS: LOWER CHEST: Unremarkable ABDOMEN LIVER: Unremarkable GALLBLADDER AND BILE DUCTS: The gallbladder surgically absent. No biliary ductal dilatation. PANCREAS: Unremarkable. SPLEEN: Unremarkable. ADRENAL GLANDS: Unremarkable. KIDNEYS AND URETERS: No evidence of hydronephrosis or renal calculus. The ureters are unremarkable. PELVIS BLADDER: Unremarkable REPRODUCTIVE: Unremarkable. ABDOMEN & PELVIS STOMACH AND BOWEL: No evidence of bowel obstruction. Appendix is normal. There is small bowel gas and feces throughout the abdomen. There is stool throughout the colon. No bowel wall thickening PERITONEUM/RETROPERITONEUM: No evidence of pneumoperitoneum or free fluid. VASCULATURE: No evidence of aortic aneurysm. MUSCULOSKELETAL: No acute osseous abnormalities LYMPH NODES: No gross evidence for lymphadenopathy. SOFT TISSUE/ABDOMINAL WALL: Small umbilical hernia. IMPRESSION: Small bowel gas and feces throughout the abdomen, correlate with fecal stasis. Otherwise no abnormal finding the abdomen and pelvis. Appendix is normal. No obstructive uropathy.
== END 2022-09-26 22:18 | disposition home or self-care (01) ==
LOC: EC 19:13
DX: K52.9 Noninfective gastroenteritis and colitis, unspecified (principal); F41.9 Anxiety disorder, unspecified; F32.A Depression, unspecified; Z88.0 Allergy status to penicillin; Z88.8 Allergy status to other drugs, medicaments and biological substances
CPT/HCPCS: 36415; 93005; 80053; 82150; 83690; 84484; 85025; 81003; 81025; 74018; 74177; 99284; Q9967

== ENCOUNTER → 2022-09-28 | Outpatient (CLI) | payer OTHER ==
--- NOTE | 2022-09-28 13:04 | MR ---
EXAMINATION TYPE: MR knee LT wo con DATE OF EXAM: 09/28/2022 COMPARISON: NONE HISTORY: Left knee outer pain and swelling for 1-1.5 years after volleyball injury TECHNIQUE: Multiplanar, multisequence images of the knee is performed without IV contrast. FINDINGS: MEDIAL MENISCUS: Medial bulging medial meniscus with subtle increased signal coronal image 19 in the central body does not definitively extend to articular surface. LATERAL MENISCUS: Anterior and posterior horns are intact without tear. CRUCIATE LIGAMENTS: The anterior and posterior cruciate ligaments are intact. Immediately anterior to the anterior cruciate ligament with local mass effect. Oval circumscribed mass measuring 2.5 cm AP d iameter by 1.1 cm craniocaudal dimension sagittal image 19 x 2.4 cm transversely coronal image 13. Le jaci has slight T1 hypointensity and slight T2 hyperintensity. COLLATERAL LIGAMENTS: The medial collateral ligament and lateral collateral ligament complex are inta ct and unremarkable. EXTENSOR MECHANISM: Visualized quadriceps and patellar tendons are intact. Some increased signal prox imal patellar tendon. EFFUSION: Small size suprapatellar joint effusion. POPLITEAL CYST: Moderate to large size septated popliteal/garza cyst having more prominent superior e xtension. TRICOMPARTMENT SPACES: At least moderate narrowing with significant cartilaginous loss medial tibial femoral compartment. Patellofemoral and medial tibiofemoral compartments are preserved. CARTILAGE: See above BONE MARROW SIGNAL: Areas of heterogeneous diminished T1 and increased T2 signal involving the articu lar surface of the distal medial femoral condyle. OTHER: Subcutaneous edema superficial infrapatellar space. IMPRESSION: 1. There is oval 2.4 x 1.1 by 2.5 cm circumscribed lesion immediately anterior to the distal ACL with local mass effect. Differential includes a complicated ganglion cyst, a large intra-articular osteoc hondral lesion, but focal synovitis and a synovial tumor are not entirely excluded. Consider contrast -enhanced MRI and/or endoscopic evaluation to further evaluate. 2. Intrasubstance tear medial meniscus, no full-thickness meniscal tear clearly seen. 3. Some tendinosis of the proximal patellar tendon. 4. Small sized suprapatellar joint effusion. 5. Moderate to large size septated popliteal cyst extending superiorly. 6. At least moderate medial tibiofemoral compartment arthropathy which is prominent for patient's age with areas of cartilaginous loss and bony involvement seen as detailed above.
== END | disposition home or self-care (01) ==
LOC: RADMRIMAIN 07:54
PROVIDERS: ATTEND Nurse Practitioner
DX: S83.242A Other tear of medial meniscus, current injury, left knee, initial encounter (principal); M71.22 Synovial cyst of popliteal space [Baker], left knee; M19.012 Primary osteoarthritis, left shoulder; M25.462 Effusion, left knee

== ENCOUNTER → 2023-03-26 | Outpatient (CLI) | payer OTHER ==
--- NOTE | 2023-03-26 09:08 | US ---
EXAMINATION TYPE: US transvaginal DATE OF EXAM: 03/26/2023 COMPARISON: 06/08/21 CLINICAL INDICATION: Female, 37 years old with history of R10.2 PELVIC AND PERINEAL PAIN; TECHNIQUE: TV Date of LMP: 03/23/23 EXAM MEASUREMENTS: Uterus: 8.1 x 4.5 x 5.1 cm Endometrial Stripe: 0.61 cm Right Ovary: 4.3 x 4.0 x 4.5 cm Left Ovary: 2.2 x 1.7 x 1.2 cm 1. Uterus: Anteverted Nabothian cysts noted 2. Endometrium: Appears wnl 3. Right Ovary: 3.6 x 2.5 x 3.8 cm cyst; venous and arterial flow noted 4. Left Ovary: appears wnl Spectral, color and waveform doppler imaging shows good arterial and venous flow within the right o vary; there is no evidence for ovarian torsion. 5. Bilateral Adnexa: appears wnl 6. Posterior cul-de-sac: wnl IMPRESSION: 1. Right ovarian 3.6 cm cyst. Favored to represent a simple cyst. This can be reassessed in 6-12 week s as clinically indicated with pelvic ultrasound. 2. Normal endometrial thickness.
== END | disposition home or self-care (01) ==
LOC: RADUSWWP 08:20
PROVIDERS: ATTEND Family Medicine
DX: N83.201 Unspecified ovarian cyst, right side (principal); R10.2 Pelvic and perineal pain
CPT/HCPCS: 76830

== ENCOUNTER → 2024-03-24 | Outpatient (CLI) | payer BC, OTHER ==
--- NOTE | 2024-03-24 12:01 | US ---
EXAMINATION TYPE: US transvaginal DATE OF EXAM: 03/24/2024 COMPARISON: US 03/26/2023 CLINICAL INDICATION: Female, 38 years old with history of R10.2 PELVIC AND PERINEAL PAIN N92.0 exc.fr eq.mnst; Hx right ovarian cyst. Pain x 1 year. Hx 1 miscarriage, 2 C sections. . TECHNIQUE: Transvaginal (TV). Date of LMP: Unknown EXAM MEASUREMENTS: Uterus: 8.4 x 5.3 x 3.9 cm Endometrial Stripe: 0.79 cm Right Ovary: Not seen Left Ovary: Not seen 1. Uterus: Anteverted Appears heterogeneous. *Small amount of fluid seen in cervix. *Anechoic area may be a nabothian cyst seen in cervix: 1.0 cm in length. 2. Endometrium: 0.79 cm. LMP unknown. 3. Right Ovary: Not seen 4. Left Ovary: Not seen 5. Bilateral Adnexa: Appear wnl 6. Posterior cul-de-sac: Appears wnl IMPRESSION: 1. Hypoechoic collection within the endometrial canal could be some fluid in the lower cervical canal . 2. Cervical nabothian cyst. [facility], , 03/24/2024 11:59 AM
== END | disposition home or self-care (01) ==
LOC: RADUSWWP 07:49
PROVIDERS: ATTEND Family Medicine
DX: N92.0 Excessive and frequent menstruation with regular cycle (principal); N88.8 Other specified noninflammatory disorders of cervix uteri
CPT/HCPCS: 76830